=== PATIENT | male | born 1955 | race Caucasian/White ===

== ENCOUNTER 2017-05-08 08:55 | Day surgery (SDC) | payer OTHER ==
[~2017-05-08] VITALS: Ht 177.8 cm; Wt 86.5 kg
[2017-05-08 09:58] VITALS: Ht 177.8 cm; Wt 86.5 kg
[2017-05-08] MEDS ORDERED: TRIUMEQ PO (10:00)
[2017-05-08 10:28] VITALS: BP 115/77; PULSE 73; RESP 18
[2017-05-08 11:25] VITALS: BP 118/78; PULSE 58; RESP 14
[2017-05-08] MEDS ORDERED: FENTAnyl 50 MCG/ML VIAL ONE (11:25)
[2017-05-08] MEDS ORDERED: MIDAZOLAM 1 MG/ML 2 ML INJ ONE ×2 (11:25→11:26)
--- NOTE | 2017-05-08 12:48 | GILP ---
DATE OF PROCEDURE: 05/08/2017 PROCEDURE: Colonoscopy. PREOPERATIVE DIAGNOSIS: The patient is presenting with history of chronic diarrhea and history of HIV. Rule out opportunistic infectious colitis, rule out colorectal neoplasm. POSTOPERATIVE DIAGNOSIS: Normal colon. Minimal external hemorrhoids. DESCRIPTION OF PROCEDURE: After informed written consent was obtained the patient was asked to lay on the left lateral side. 4 mg Versed, 100 mcg of fentanyl was given as intravenous anesthesia. When the patient became somnolent, Olympus video colonoscope was introduced into the rectum. The scope was gently advanced through the sigmoid colon, splenic flexure, transverse colon, hepatic flexure, in the cecum. The entire colon appeared normal with no mucosal abnormality. No colitis, no neoplasm noted. Multiple biopsies were obtained in random fashion to rule out microscopic colitis. On the way out minimal retroflexion was performed. Minimal internal, minimal external hemorrhoids were noted and the procedure was terminated. PLAN: Recommend wait for the pathology report and consider further workup. Dictated By: Isaiah Sanchez MD /[email or web address] /Document#: [id number] ; [facility]
== END 2017-05-08 12:28 | disposition home or self-care (01) ==
LOC: GIL 08:55
PROVIDERS: ATTEND Internal Medicine Gastroenterology
DX: Z12.11 Encounter for screening for malignant neoplasm of colon (principal); K64.4 Residual hemorrhoidal skin tags
CPT/HCPCS: 45378; 88305; J2250; J3010; Z7610